=== PATIENT | female | born 1995 | race Caucasian/White ===

== ENCOUNTER 2020-03-04 02:24 | Emergency (ER) | payer MEDICAID, OTHER ==
[~2020-03-04] VITALS: Ht 170.1 cm; Wt 88.6 kg
--- NOTE | 2020-03-04 02:44 | ED General ---
General Chief Complaint: Cardiac/General Problems Stated Complaint: 30WK PREG, RAPID HEARTRATE,ELVE BP History of Present Illness Date Seen by Provider: Mar 04, 2020 Time Seen by Provider: 02:39 Initial Comments 25-year-old female presents with a rapid heart rate and a slight elevation of her blood pressure. Patient reports she was sleeping and when she woke up. When she awoke she felt like her heart was racing. Reports she has a home blood pressure machine so she checked it. That her heart rate was 1:15 and her blood pressure was 150/100's. Patient reports that when this happened and when she was sleeping the baby was kicking a lot. That she's felt the baby move on the drive here. She has no bleeding, abdominal pain or vaginal pain. Patient reports that she has the home blood pressure machine due to [facility] visits and she was asked to get one. Upon arrival her heart rate had slowed down to the low 90s with a normal blood pressure reading. Patient was slightly anxious and just wanted to be evaluated. She has no other systemic complaints such as fever, cough, shortness of breath, nausea ,vomiting, or vision changes. Allergies and Home Medications Patient Home Medication List Home Medication List Reviewed: Yes Review of Systems Review of Systems Constitutional: see HPI; No chills, No fever EENTM: no symptoms reported Respiratory: no symptoms reported; No cough, No short of breath Cardiovascular: see HPI; No chest pain; palpitations Gastrointestinal: No abdominal pain, No nausea, No vomiting Genitourinary: no symptoms reported Musculoskeletal: no symptoms reported Skin: no symptoms reported Psychiatric/Neurological: No Symptoms Reported Past Rmxrocy-Ijruiu-Fydufv Hx Past Med/Social Hx: Reviewed Nursing Past Med/Soc Hx Patient Social History Recent Foreign Travel: No Contact w/Someone Who Travel: No Physical Exam Vital Signs Capillary Refill : Height, Weight, BMI Height: '" Weight: lbs. oz. kg; BMI Method: General Appearance: No Apparent Distress, WD/WN HEENT: PERRL/EOMI, Moist Mucous Membranes Respiratory: Lungs Clear, Normal Breath Sounds Cardiovascular: Regular Rate, Rhythm, No Edema, Normal Peripheral Pulses Gastrointestinal: Non Tender, Soft, Other (gravid appearing, bedside ultrasound shows good movement with heart rate approximately 145 to 150s) Neurologic/Psychiatric: Oriented x3, No Motor/Sensory Deficits, Normal Mood/Affect, book retailer II-XII Norm as Tested, Other (no clonus) Skin: Normal Color, Warm/Dry Progress/Results/Core Measures Suspected Sepsis SIRS Temperature: Pulse: Respiratory Rate: Blood Pressure / Mean: Results/Orders Vital Signs/I&O Capillary Refill : Progress Note : Time: 02:56 Progress Note Patient with no symptoms with a normal exam at this time. At this time I will defer further evaluation and workup as there are no further indications. I did discuss with her that it could be sleep apnea-type symptoms from her versus she could've had a night care or similar cream that caused her to have these symptoms when she awoke. That if they become more frequent she should be seen in follow-up with her OB guide. For further evaluation. If her symptoms do not resolve or with any other concerns to return to the ER. Patient stable and discharged home Departure Impression Primary Impression: 30 weeks gestation of Disposition: 01 HOME, SELF-CARE Condition: Stable Departure-Patient Inst. Referrals: BENEDICTO WILSON MD (PCP/Family) Primary Care Physician Patient Instructions: Preparing for Childbirth, How to Adapt to Physical Changes During Add. Discharge Instructions: Follow-up with your OB if symptoms become more frequent or return to the ER as needed or if symptoms are not resolving All discharge instructions reviewed with patient and/or family. Voiced understanding. ASHLEIGH FALL DO Mar 04, 2020 02:44
[2020-03-04 03:02] VITALS: BP 143/93
== END 2020-03-04 03:02 | disposition home or self-care (01) ==
LOC: ER FS 02:28
DX: Z34.93 Encounter for supervision of normal pregnancy, unspecified, third trimester (principal)
CPT/HCPCS: 99283